=== PATIENT | male | born 1980 | race Caucasian/White ===

== ENCOUNTER 2021-05-21 15:15 | Outpatient (CLI) | payer OTHER, SELFPAY ==
[2021-05-25 13:41] LABS: Testosterone Free 46.4 pg/mL (35.0-155.0); Testosterone Total 239 ng/dL (250-1100)
== END 2021-05-21 15:16 | disposition home or self-care (01) ==
PROVIDERS: PCP Nurse Practitioner Family; Visit Provider Nurse Practitioner Family
DX: R68.82 Decreased libido (principal)
CPT/HCPCS: 36415; 84402; 84403

== ENCOUNTER 2023-05-31 11:27 | Outpatient (CLI) | payer OTHER, SELFPAY ==
[2023-05-31 11:52] LABS: Basophils Absolute Auto 0.07 K/mm3 (0.00-0.10); Basophils Percent Auto 0.9 % (0.0-1.0); Eosinophils Absolute Auto 0.14 K/mm3 (0.02-0.50); Eosinophils Percent Auto 1.9 % (1.0-6.0); Hematocrit 47.9 % (40.0-54.0); Hemoglobin 16.2 g/dL (14.0-18.0); Immature Granulocyte Absolute 0.04 K/mm3 (0.00-0.00); Immature Granulocyte Percent A 0.5 % (0.0-0.0); Lymphocytes Absolute Auto 2.14 K/mm3 (1.10-4.50); Mean Corpuscular HGB Conc 33.8 g/dL (32.0-36.0); Mean Corpuscular Volume 94.7 fL (78.0-102.0); Mean Platelet Volume 9.8 fl (8.7-11.0); Monocytes Absolute Auto 0.55 K/mm3 (0.10-0.90); Monocytes Percent Auto 7.4 % (2.0-11.0); Neutrophils Absolute Auto 4.5 K/mm3 (1.7-7.2); Neutrophils Percent Auto 60.3 % (50.0-70.0); Platelet Count Result 266 K/mm3 (150-420); Red Blood Count 5.06 M/mm3 (4.70-6.10); Red Cell Distribution Width 11.8 % (11.6-14.4); White Blood Count 7.4 K/mm3 (4.8-10.8)
[2023-05-31 12:17] LABS: Hemoglobin A1C 5.4 % (<5.7)
[2023-05-31 12:37] LABS: Alanine Aminotransferase 98 U/L (16-63); Albumin Level 4.2 g/dL (3.4-5.0); Alkaline Phosphatase 67 U/L (46-116); Anion Gap 6 mmol/L (8-16); Aspartate Amino Transferase 26 U/L (15-37); Bilirubin,Total 0.3 mg/dL (0.00-1.00); Blood Urea Nitrogen 14 mg/dL (7-18); Calcium 9.7 mg/dL (8.5-10.1); Carbon Dioxide 32 mmol/L (21-32); Chloride 101 mmol/L (98-108); Cholesterol 232 mg/dL (0-200); Estimated Glomerular Filt Rate > 60; Glucose 97 mg/dL (70-99); HDL Direct 37 mg/dL (40-60); LDL Cholesterol Calculated 160 mg/dL (<130); Magnesium 2.2 mg/dL (1.8-2.4); Osmolality Calculated 288 mOsm/kg (285-295); Potassium 5.6 mmol/L (3.5-5.1); Sodium 139 mmol/L (136-145); Total Protein 7.8 g/dL (6.4-8.2); Triglycerides 173 mg/dL (0-150); Vitamin B12 864 pg/mL (193-986)
[2023-05-31 13:07] LABS: Thyroid Stimulating Hormone Reflex 0.61 u/IU/mL (0.36-3.74)
[2023-06-03 11:59] LABS: Vitamin D 25 Hydroxy 39 ng/mL (30-100)
== END 2023-05-31 11:28 | disposition home or self-care (01) ==
LOC: CHSLAB 11:29
PROVIDERS: PCP Nurse Practitioner Family; Visit Provider Nurse Practitioner Family
DX: Z13.1 Encounter for screening for diabetes mellitus (principal); R53.83 Other fatigue; F41.9 Anxiety disorder, unspecified; I10 Essential (primary) hypertension
CPT/HCPCS: 36415; 80053; 80061; 82306; 82607; 83036; 83735; 84443; 85025

== ENCOUNTER 2023-06-01 18:16 | Outpatient (CLI) | payer OTHER, SELFPAY ==
[2023-06-01 19:10] LABS: Potassium 4.7 mmol/L (3.5-5.1)
[2023-06-05 14:15] LABS: Testosterone Free 68.7 pg/mL (35.0-155.0); Testosterone Total 332 ng/dL (250-1100)
== END 2023-06-01 18:17 | disposition home or self-care (01) ==
LOC: CHSLAB 18:17
PROVIDERS: PCP Nurse Practitioner Family; Visit Provider Nurse Practitioner Family
DX: N52.9 Male erectile dysfunction, unspecified (principal); E87.5 Hyperkalemia
CPT/HCPCS: 36415; 84132; 84402; 84403

== ENCOUNTER 2023-08-13 15:33 | Emergency (ER) | payer MEDICAID, SELFPAY ==
--- NOTE | ~2023-08-13 | XR_ITS ---
Left foot Technique: AP, oblique, and lateral views were obtained. Clinical History: Fourth digit pain Findings: No acute fracture or dislocation is seen. Osseous alignment is anatomic. Joint spaces are p reserved without erosive or degenerative change. Soft tissues are unremarkable. Impression: Unremarkable left foot radiographs. Reviewed, dictated and finalized at [facility]. C ACOUSTIC ANALYST Impression: Unremarkable left foot radiographs.
[2023-08-13 15:33] VITALS: BP 137/99; PULSE 78; RESP 16; TEMP 36.3; O2SAT 99
--- NOTE | 2023-08-13 17:12 | ED.EXTPRO ---
HPI - Extremity Problem General Chief complaint: Extremity Problem,Nontraumatic Stated complaint: left foot - 4th toe pain Time Seen by Provider: 08/13/23 15:40 Source: patient and family Mode of arrival: ambulatory Limitations: no limitations History of Present Illness HPI Narrative: this is 43-year-old male who presents no past history history of left 4th toe specially when he wears tight-fitting shoes with no known injuries there is no numbness or tingling pain is currently negligible but significant discomfort when he wears tight shoes. Otherwise has good brisk pedal pulse on the left, There is no redness no warmth to the toe there is no paronychia lung inflammation or drainage. Complaint: extremity pain Onset (ago): month(s) Pain Consistency: intermittent Location: left Severity scale (1-10): 1 Quality: aching Radiation: distal Relieving factors: immobilization and medication Exacerbating factors: walking and palpation Related Data Allergies Allergy/AdvReac Type Severity Reaction Status Date / Time No Known Allergies Allergy Verified 08/13/23 16:03 Review of Systems Genitourinary: Genitourinary: Reports no additional male genitourinary complaints PMFSH Past Medical History Medical History Hypertension Surgical History Surgical History History of hernia repair 06-03-17 History of vasectomy 12-10-16 Social History Social History Smoking packs per day: 1 Smoking cigarettes per day: 20.0 Years smoked: 15 Smoking pack-years: 15.00 Smoking status: Former smoker Tobacco type: cigarettes Living arrangements: with family Additional living arrangements comments: . Exam Const: General: healthy appearing and no acute distress Nutritional Appearance: well nourished Orientation/consciousness: patient oriented x3 Limitations: no limitations Resp: Effort & Inspection: normal respiratory effort Auscultation: clear to auscultation bilaterally Cardio: Rate: regular rate Rhythm: regular rhythm Back/Spine/Pelvis: Back: no CVA tenderness Skin: General skin exam: normal color Rashes: no rashes Wounds: no wounds Neuro: General: patient oriented x3 and moves all extremities Extrem: Other: Tenderness some left 4th toe with palpation Course Course Emergency Course: patient currently not exhibiting any pain declined pain medicine at this time x-ray performed shows no acute abnormalities. Vital Signs Vital signs: Vital Signs Temperature 36.3 C L 08/13/23 15:33 Pulse Rate 78 08/13/23 15:33 Respiratory Rate 16 08/13/23 15:33 Blood Pressure 137/99 H 08/13/23 15:33 Pulse Oximetry 99 08/13/23 15:33 Oxygen Delivery Room Air 08/13/23 15:33 Temperature 36.3 C L 08/13/23 15:33 Pulse Rate 78 08/13/23 15:33 Respiratory Rate 16 08/13/23 15:33 Blood Pressure 137/99 H 08/13/23 15:33 Pulse Oximetry 99 08/13/23 15:33 Oxygen Delivery Room Air 08/13/23 15:33 Critical Care Time Critical Care Time Critical Care Time: No Discharge Plan Discharge Clinical Impression: Pain in toe Qualifiers: Laterality: left Qualified Code(s): M79.675 - Pain in left toe(s) Patient Disposition: Home, Self-Care Condition: Stable Instructions: Antibiotic Form, Arthralgia (ED) Additional Instructions: advised to continue ibuprofen as needed and follow up with primary within 1 week further evaluation and treatment. Prescriptions: No Action fluticasone propionate [Allergy Relief (fluticasone)] 50 mcg/actuation spray,suspension 1 spray intranasal DAILY Qty: 9.9 0RF Rx Instructions: administer into each nostril atorvastatin 40 mg tablet 40 mg PO QHS 90 Days Qty: 90 1RF venlafaxine 37.5 mg capsule,extended release 24hr 37.5 mg PO DAILY 90 Days Qty: 90 2RF l
[2023-08-13 17:25] VITALS: BP 119/70; PULSE 68; RESP 16; O2SAT 100
== END 2023-08-13 17:27 | disposition home or self-care (01) ==
PROVIDERS: Emergency Provider Emergency Medicine; PCP Nurse Practitioner Family
DX: M79.675 Pain in left toe(s) (principal); I10 Essential (primary) hypertension; Z87.891 Personal history of nicotine dependence
CPT/HCPCS: 73630; 99283